=== PATIENT | male | born 1995 | race Hispanic/Latino ===

== ENCOUNTER 2020-11-27 08:13 | Emergency (ER) | payer SELFPAY ==
--- OUTSIDE RECORDS SUMMARY | 2020-11-27 08:15 | XMS REPORT | Continuity of Care Document ---
:1995 Author Organization [facility] t Address [address] [place] [address] Care Team Providers Name Role Phone Darshana Villaseñor Attending Clinician Problems This patient has no known problems. Allergies, Adverse Reactions, Alerts This patient has no known allergies or adverse reactions. Medications This patient has no known medications. Procedures This patient has no known procedures. Encounters Start End Encounter Admission Attending Care Care Encounter Source Date/Time Date/Time Type Type Clinicians Facility Department ID 2018-12-15 2018-12-15 Emergency Jorge Luis [facility] [id number] 17:34:37 19:57:00 Pavithra Dinero [id number] [place] [id number] [place] [id number] Results This patient has no known results.
--- NOTE | 2020-11-27 08:34 | EDPHYS ---
Physician Documentation [facility] Name: Tani Greer Age: 25 yrs Sex: Male : 1995 Arrival Date: 11/27/2020 Time: 08:17 Bed Waiting Private MD: ED Physician Kristian Gr HPI: 11/27 08:29 This 25 yrs old Male presents to ER via Ambulatory with complaints of High rn Blood Pressure. 08:29 The patient has elevated blood pressure and discovered this during work physical. rn Onset: The symptoms/episode began/occurred at an unknown time. Modifying factors:. Associated signs and symptoms: The patient has no apparent associated signs or symptoms, Pertinent negatives: chest pain, dizziness, dyspnea, headache, lightheadedness, nausea, visual changes, vomiting, weakness. Severity of symptoms: At its worst the blood pressure was mild, in the emergency department the blood pressure is unchanged. The patient has not experienced similar symptoms in the past. The patient has not recently seen a physician. Patient States had a work physical performed yesterday, told had high blood pressure, was 140s over 90s, long family history of hypertension. Patient has not had blood pressure evaluated in a while. Unknown how long this has been going on. Patient states feels fine otherwise. Denies headache/chest pain/shortness of breath/abdominal pain/focal neurological problems/vision changes. Basically patient came in because does not have a PCP and needs clearance for work.. Historical: - Allergies: 08:21 No Known Allergies; da3 - PMHx: 08:21 None; da3 - Family history:: not pertinent. - Hospitalizations: : No recent hospitalization is reported. ROS: 08:29 Constitutional: Negative for fever, chills, and weight loss, Eyes: Negative for injury, rn pain, redness, and discharge, ENT: Negative for injury, pain, and discharge, Neck: Negative for injury, pain, and swelling, Cardiovascular: Negative for chest pain, palpitations, and edema, Respiratory: Negative for shortness of breath, cough, wheezing, and pleuritic chest pain, Abdomen/GI: Negative for abdominal pain, nausea, vomiting, diarrhea, and constipation, Back: Negative for injury and pain, : Negative for injury, bleeding, discharge, and swelling, MS/Extremity: Negative for injury and deformity, Skin: Negative for injury, rash, and discoloration, Neuro: Negative for headache, weakness, numbness, tingling, and seizure. 08:29 All other systems are negative. Exam: 08:29 Constitutional: This is a well developed, well nourished patient who is awake, alert, rn and in no acute distress. Head/Face: Normocephalic, atraumatic. Eyes: Pupils equal round and reactive to light, extra-ocular motions intact. Lids and lashes normal. Conjunctiva and sclera are non-icteric and not injected. Cornea within normal limits. Periorbital areas with no swelling, redness, or edema. Cardiovascular: Regular rate and rhythm. No pulse deficits. Respiratory: No increased work of breathing, no retractions or nasal flaring. Abdomen/GI: Soft, non-tender MS/ Extremity: Pulses equal, no cyanosis. Neuro: Awake and alert, GCS 15, oriented to person, place, time, and situation. Cranial nerves II-XII grossly intact. Motor strength 5/5 in all extremities. Sensory grossly intact. Cerebellar exam normal. Normal gait. 08:34 ECG was reviewed by the Attending Physician. rn Vital Signs: 08:22 BP 143 / 92; Pulse 87; Resp 18; Temp 97.4; Pulse Ox 99% on R/A; da3 MDM: 08:18 Patient medically screened. rn 11/27 08:29 Order name: EKG; Complete Time: 08:29 rn 11/27 08:29 Order name: EKG - Nurse/Tech rn EC:34 Rate is 86 beats/min. Rhythm is regular. QRS [place] is Normal. [place] interval is normal. QRS rn interval is normal. QT interval is normal. No Q waves. T waves are Flattened in lead V3. No ST changes noted. Clinical impression: NSR w/ Non-specific ST/T Changes. Interpreted by me. Reviewed by me. Administered Medications: No medications were administered Disposition Summary: 11/27/20 08:33 Discharge Ordered Location: Home rn Problem: new rn Symptoms: have improved rn Condition: Stable rn Diagnosis - Hypertension - Asymptomatic rn Followup: rn - With: Private Physician - When: 5 - 6 days - Reason: Recheck today's complaints, Re-evaluation by your physician Discharge Instructions: - Discharge Summary Sheet rn - Hypertension, Adult rn - Managing Your Hypertension rn Forms: - Medication Reconciliation Form rn - Thank You Letter rn - Antibiotic rn transitional care - Prescription Opioid Use rn Prescriptions: - Hydrochlorothiazide 25 mg Oral Tablet - take 1 tablet by ORAL route once daily .; 30 tablet; Refills: 0, Product rn Selection Permitted Signatures: Kristian Gr MD MD rn Allan, David, RN RN da3
--- NOTE | 2020-11-27 08:34 | ER ---
Nurse's Notes [facility] Name: Tani Greer Age: 25 yrs Sex: Male : 1995 Arrival Date: 11/27/2020 Time: 08:17 Bed Waiting Private MD: Diagnosis: Hypertension - Asymptomatic Presentation: 11/27 08:20 Chief complaint: Patient states: PT went to physical for a job and was reported his BP da3 was too high. Coronavirus screen: Client denies travel out of the [place] in the last 14 days. At this time, the client does not indicate any symptoms associated with coronavirus-19. Ebola Screen: No symptoms or risks identified at this time. 08:20 Method Of Arrival: Ambulatory da3 08:23 Acuity: FATEMEH 4 da3 08:23 Acuity: FATEMEH 5 da3 Triage Assessment: 08:23 General: Appears in no apparent distress. comfortable. da3 Historical: - Allergies: 08:21 No Known Allergies; da3 - PMHx: 08:21 None; da3 - Family history:: not pertinent. - Hospitalizations: : No recent hospitalization is reported. Assessment: 09:29 Reassessment: Patient appears in no apparent distress at this time. General: Appears in da3 no apparent distress. comfortable. Vital Signs: 08:22 BP 143 / 92; Pulse 87; Resp 18; Temp 97.4; Pulse Ox 99% on R/A; da3 ED Course: 08:17 Patient arrived in ED. mr 08:18 Kristian Gr MD is Attending Physician. rn 08:24 Triage completed. da3 09:31 EKG done, by ED staff, reviewed by Kristian Gr MD. da3 Administered Medications: No medications were administered Outcome: 08:33 Discharge ordered by . rn 09:35 Patient left the ED. da3 Signatures: Gwendolyn Putnam mr Kristian Gr MD MD rn Allan, David, RN RN da3
[2020-11-27 09:53] VITALS: BP 143/92; TEMP 97.4; O2SAT 99
--- NOTE | 2020-11-28 13:02 | EKG ---
Test Date: 2020-11-27 Test Time: 08:30:52 Legislators: SHARRON MEASUREMENT RESULTS: Intervals: Rate: 86 RI: 162 QRSD: 80 QT: 372 QTc: 445 Bonnie: P: 25 RI: 162 QRS: 36 T: 25 INTERPRETIVE STATEMENTS: Normal sinus rhythm with sinus arrhythmia Cannot rule out Inferior infarct, age undetermined Cannot rule out Anterior infarct, age undetermined Abnormal ECG No previous ECG available for comparison Electronically Signed On 11-28-20 12:59:30 CDT by Franco Mo
== END 2020-11-27 09:35 | disposition home or self-care (01) ==
LOC: ER 08:13
DX: I10 Essential (primary) hypertension (principal)
CPT/HCPCS: 93005; 99282